=== PATIENT | male | born 1975 | race Caucasian/White ===

== ENCOUNTER 2018-02-21 12:41 | Emergency (ER) | payer BC ==
[~2018-02-21] VITALS: Ht 177.8 cm; Wt 102.3 kg
[2018-02-21 13:07] VITALS: Ht 177.8 cm; Wt 102.3 kg
[2018-02-21] MEDS ORDERED: CYCLOBENZAPRINE10 MG PO (14:40)
[2018-02-21] MEDS ORDERED: NAPROSYN500 MG PO (14:40)
[2018-02-21 14:53] VITALS: BP 120/86
== END 2018-02-21 14:54 | disposition home or self-care (01) ==
LOC: D.ER 12:41
DX: S39.012A Strain of muscle, fascia and tendon of lower back, initial encounter (principal); X58.XXXA Exposure to other specified factors, initial encounter; Y93.89 Activity, other specified; Y92.89 Other specified places as the place of occurrence of the external cause

== ENCOUNTER → 2018-03-01 15:52 | Outpatient (CLI) | payer BC ==
[2018-02-21 13:07] VITALS: BMI 32.3
[~2018-03-01 15:52] MED LIST: CYCLOBENZAPRINE10 MG PO; NAPROSYN500 MG PO
== END | disposition home or self-care (01) ==
LOC: D.MRI 15:52
DX: M48.56XD Collapsed vertebra, not elsewhere classified, lumbar region, subsequent encounter for fracture with routine healing (principal); X58.XXXA Exposure to other specified factors, initial encounter